=== PATIENT | male | born 1990 | race Hispanic/Latino ===

== ENCOUNTER 2021-08-11 18:18 | Inpatient (IN) | payer BC, OTHER ==
[~2021-08-11] VITALS: Ht 172.7 cm; Wt 136.1 kg
[2021-08-11] MEDS ORDERED: 0.9%NACL 1000ML 1,000 ML IV ONE ×2 (19:00)
[2021-08-11] MEDS ORDERED: ONDANSETRON 4MG INJ IVP ONE (19:00)
[2021-08-11 19:41] LABS: BASOPHILS % (AUTO) 0.6 % (0.0-5.0); EOSINOPHILS % (AUTO) 0.6 % (0.0-8.0); LYMPHOCYTES % (AUTO) 19.4 % (21.0-51.0); MEAN CORPUSCULAR HEMOGLOBIN 27.3 pg (27.0-33.0); MEAN CORPUSCULAR HGB CONC 34.8 g/dL (32.0-36.0); MEAN CORPUSCULAR VOLUME 78.5 fL (79-99); MONOCYTES % (AUTO) 11.5 % (3.0-13.0); NEUTROPHILS % (AUTO) 67.4 % (40.0-77.0); PLATELET COUNT (AUTO) 270 K/uL (130-400); RED BLOOD CELL COUNT(AUTO) 5.35 MIL/uL (4.50-6.20); RED CELL DISTRIBUTION WIDTH 16.2 % (11.0-15.5); WHITE BLOOD COUNT (AUTO) 10.4 K/uL (4.8-10.8)
[2021-08-11 20:09] LABS: ALBUMIN 3.5 g/dL (3.5-5.0); BILIRUBIN,TOTAL 0.7 mg/dL (0.2-1.0); CREATININE 1.3 mg/dL (0.5-1.5); TOTAL PROTEIN, SERUM 8.1 g/dL (6.0-8.3)
[2021-08-11 20:10] LABS: POTASSIUM 2.5 mmol/L (3.5-5.1)
[2021-08-11] MEDS ORDERED: INSULIN REGULAR, HUMAN 3ML 100 UNIT in 0.9%NACL 100ML 99 ML IV STA ×2 (20:26)
[2021-08-11] MEDS ORDERED: POTASSIUM BICARB/CIT AC 25 MEQ TABLET.EFF PO STA (20:26)
[2021-08-11] MEDS ORDERED: INSULIN HUMULIN R 100 UNIT/ML 3ML IV STA (20:26)
[2021-08-11] MEDS ORDERED: INSULIN HUMULIN R 100 UNIT/ML 3ML ONE (20:41)
[2021-08-11 20:42] LABS: ABG BASE EXCESS -10.5 mmol/L (-2.0-3.0); ABG HCO3 12.1 mmol/L (21.0-28.0); ABG OXYGEN SATURATION 98.5 % (95.0-99.0); ABG PCO2 21 mmHg (35-48)
[2021-08-11 20:49] LABS: APPEARANCE,URINE Clear (CLEAR); BILIRUBIN,URINE Negative (NEGATIVE); COLOR,URINE Yellow (YELLOW); GLUCOSE, URINE (UA) >=1000 mg/dL (NEGATIVE); KETONES,URINE >=160 mg/dL (NEGATIVE); LEUKOCYTE ESTERASE ,URINE Small (NEGATIVE); NITRATE,URINE Negative (NEGATIVE); OCCULT BLOOD,URINE Trace (NEGATIVE); PH,URINE 5.5 (5.0-8.0); PROTEIN,URINE Trace mg/dL (NEGATIVE); UROBILINOGEN,URINE 0.2 mg/dL (0.2-1.0)
[2021-08-11 20:55] LABS: BACTERIA,URINE Rare /HPF (None Seen); SQUAMOUS EPITHELIAL CELL,UR Rare /HPF (0-2); YEAST,URINE BUDDING Few /HPF (None Seen)
[2021-08-11] MEDS ORDERED: LIDOCAINE HCL-MPF 1% 2ML VIAL IV STA (21:13)
[2021-08-11] MEDS: POTASSIUM CHLORIDE 20MEQ/100ML 100 ML IV PRN (21:32)
[2021-08-11 21:58] LABS: HEMOGLOBIN A1C 11.5 % (4.0-6.0)
[2021-08-11] MEDS ORDERED: ONDANSETRON 4MG INJ IV PRN (22:00)
[2021-08-11] MEDS ORDERED: ACETAMINOPHEN 325 MG TAB PO PRN ×2 (22:00)
[2021-08-11] MEDS ORDERED: NITROGLYCERIN 0.4 MG SL TAB SL PRN (22:00)
[2021-08-11] MEDS ORDERED: INSULIN REGULAR, HUMAN 3ML 100 UNIT in 0.9%NACL 100ML 99 ML IV PRN ×4 (22:00→22:30)
[2021-08-11] MEDS ORDERED: DEXTROSE 5 %-0.45 % NACL 1,000 ML IV PRN (22:00)
[2021-08-11] MEDS ORDERED: 0.9%NACL 1000ML 1,000 ML IV SCH (22:00)
[2021-08-11] MEDS: 0.9%NACL 1000ML 1,000 ML IV SCH (23:17)
[2021-08-12 00:30] LABS: MAGNESIUM 2.2 mg/dL (1.80-2.40)
[2021-08-12 00:33] LABS: POTASSIUM 2.4 mmol/L (3.5-5.1)
[2021-08-12] MEDS: POTASSIUM CHLORIDE 20MEQ/100ML 100 ML IV PRN (00:48)
[2021-08-12] MEDS ORDERED: KCL 20 MEQ ERTAB PO ONE ×2 (02:00→05:00)
[2021-08-12] MEDS: 0.9%NACL 1000ML 1,000 ML IV SCH (04:08)
[2021-08-12 04:28] LABS: BASOPHILS % (AUTO) 0.3 % (0.0-5.0); EOSINOPHILS % (AUTO) 1.7 % (0.0-8.0); HEMATOCRIT 38.4 % (42-54); LYMPHOCYTES % (AUTO) 28.5 % (21.0-51.0); MEAN CORPUSCULAR HEMOGLOBIN 27.1 pg (27.0-33.0); MEAN CORPUSCULAR HGB CONC 34.1 g/dL (32.0-36.0); MEAN CORPUSCULAR VOLUME 79.5 fL (79-99); MONOCYTES % (AUTO) 13.4 % (3.0-13.0); NEUTROPHILS % (AUTO) 55.7 % (40.0-77.0); PLATELET COUNT (AUTO) 227 K/uL (130-400); RED BLOOD CELL COUNT(AUTO) 4.83 MIL/uL (4.50-6.20); RED CELL DISTRIBUTION WIDTH 16.1 % (11.0-15.5)
[2021-08-12 04:40] LABS: CREATININE 0.9 mg/dL (0.5-1.5)
[2021-08-12 04:40] LABS: ABG HCO3 17.5 mmol/L (21.0-28.0); ABG OXYGEN SATURATION 97.3 % (95.0-99.0); ABG PCO2 33 mmHg (35-48)
[2021-08-12 04:54] LABS: POTASSIUM 2.3 mmol/L (3.5-5.1)
[2021-08-12] MEDS ORDERED: D5W-1/2 NS/20MEQ KCL 1,000 ML IV SCH (05:00)
[2021-08-12 06:55] LABS: ABG BASE EXCESS -6.3 mmol/L (-2.0-3.0); ABG HCO3 17.9 mmol/L (21.0-28.0); ABG OXYGEN SATURATION 97.6 % (95.0-99.0); ABG PCO2 32 mmHg (35-48)
[2021-08-12 08:00] VITALS: BP 164/78
[2021-08-12 08:47] LABS: MAGNESIUM 2.1 mg/dL (1.80-2.40)
[2021-08-12 09:00] VITALS: BP 156/74
[2021-08-12] MEDS ORDERED: FAMOTIDINE 20MG VIAL IV SCH (09:00)
[2021-08-12 09:03] LABS: POTASSIUM 2.6 mmol/L (3.5-5.1)
[2021-08-12] MEDS: POTASSIUM CHLORIDE 10MEQ/100ML 100 ML IV PRN (09:57)
[2021-08-12 10:00] VITALS: BP 156/64
[2021-08-12] MEDS: ENOXAPARIN SODIUM 40 MG/0.4 ML SYRINGE SQ SCH (10:09)
[2021-08-12 11:15] VITALS: BP 166/66
[2021-08-12 12:39] LABS: CREATININE 0.8 mg/dL (0.5-1.5)
[2021-08-12 12:40] LABS: POTASSIUM 2.2 mmol/L (3.5-5.1)
[2021-08-12] MEDS ORDERED: INSULIN GLARGINE 100 UNITS/ML 10 ML VIAL SQ ONE (13:45)
[2021-08-12] MEDS: INSULIN HUMULIN R 100 UNIT/ML 3ML SQ SCH ×3 (17:48→21:00)
[2021-08-12 19:30] VITALS: BP 130/91
[2021-08-13] VITALS (7 sets, daily range): BP systolic 113–150; BP diastolic 75–106
[2021-08-13 04:57] LABS: BASOPHILS % (AUTO) 0.5 % (0.0-5.0); EOSINOPHILS % (AUTO) 2.3 % (0.0-8.0); HEMATOCRIT 37.9 % (42-54); LYMPHOCYTES % (AUTO) 38.3 % (21.0-51.0); MEAN CORPUSCULAR HEMOGLOBIN 27.5 pg (27.0-33.0); MEAN CORPUSCULAR HGB CONC 34.6 g/dL (32.0-36.0); MEAN CORPUSCULAR VOLUME 79.6 fL (79-99); MONOCYTES % (AUTO) 13.1 % (3.0-13.0); NEUTROPHILS % (AUTO) 45.3 % (40.0-77.0); PLATELET COUNT (AUTO) 213 K/uL (130-400); RED BLOOD CELL COUNT(AUTO) 4.76 MIL/uL (4.50-6.20); RED CELL DISTRIBUTION WIDTH 16.2 % (11.0-15.5); WHITE BLOOD COUNT (AUTO) 7.4 K/uL (4.8-10.8)
[2021-08-13 05:23] LABS: ALBUMIN 2.7 g/dL (3.5-5.0); BILIRUBIN,TOTAL 0.6 mg/dL (0.2-1.0); TOTAL PROTEIN, SERUM 6.4 g/dL (6.0-8.3)
[2021-08-13 05:24] LABS: POTASSIUM 2.4 mmol/L (3.5-5.1)
[2021-08-13] MEDS: LIDOCAINE HCL-MPF 1% 2ML VIAL IV PRN (05:32)
[2021-08-13] MEDS: POTASSIUM CHLORIDE 20MEQ/100ML 100 ML IV PRN ×2 (05:33→18:10)
[2021-08-13] MEDS: KCL 20 MEQ ERTAB PO SCH ×2 (06:00→08:23)
[2021-08-13] MEDS: INSULIN HUMULIN R 100 UNIT/ML 3ML SQ SCH ×5 (06:35→20:11)
[2021-08-13] MEDS ORDERED: INSULIN GLARGINE 100 UNITS/ML 10 ML VIAL SQ SCH (08:00)
[2021-08-13] MEDS: ENOXAPARIN SODIUM 40 MG/0.4 ML SYRINGE SQ SCH (08:22)
[2021-08-13] MEDS ORDERED: KCL 20 MEQ ERTAB PO SCH ×2 (09:43→13:00)
[2021-08-13] MEDS ORDERED: INSULIN HUMULIN R 100 UNIT/ML 3ML SQ SCH ×2 (11:30→17:00)
[2021-08-13] MEDS: LACTATED RINGERS 1000ML 1,000 ML IV SCH (12:17)
[2021-08-13 15:21] LABS: POTASSIUM 2.6 mmol/L (3.5-5.1)
[2021-08-13] MEDS: KCL 20 MEQ ERTAB PO PRN ×3 (15:42→16:20)
[2021-08-13 19:10] LABS: ALBUMIN 2.8 g/dL (3.5-5.0); BILIRUBIN,TOTAL 0.4 mg/dL (0.2-1.0); CREATININE 0.9 mg/dL (0.5-1.5); POTASSIUM 3.1 mmol/L (3.5-5.1); TOTAL PROTEIN, SERUM 6.7 g/dL (6.0-8.3)
[2021-08-14] MEDS: LACTATED RINGERS 1000ML 1,000 ML IV SCH ×3 (02:15→11:40)
[2021-08-14 03:40] LABS: HEMATOCRIT 36.9 % (42-54); MEAN CORPUSCULAR HEMOGLOBIN 28.3 pg (27.0-33.0); MEAN CORPUSCULAR HGB CONC 35.2 g/dL (32.0-36.0); MEAN CORPUSCULAR VOLUME 80.4 fL (79-99); RED BLOOD CELL COUNT(AUTO) 4.59 MIL/uL (4.50-6.20); RED CELL DISTRIBUTION WIDTH 16.2 % (11.0-15.5)
[2021-08-14 03:48] VITALS: BP 126/75
[2021-08-14 03:55] LABS: CREATININE 0.8 mg/dL (0.5-1.5)
[2021-08-14 03:58] LABS: POTASSIUM 2.5 mmol/L (3.5-5.1)
[2021-08-14] MEDS: POTASSIUM CHLORIDE 20MEQ/100ML 100 ML IV PRN (04:08)
[2021-08-14] MEDS: KCL 20 MEQ ERTAB PO PRN (04:08)
[2021-08-14] MEDS: LIDOCAINE HCL-MPF 1% 2ML VIAL IV PRN (04:08)
[2021-08-14] MEDS: INSULIN HUMULIN R 100 UNIT/ML 3ML SQ SCH ×7 (06:39→21:50)
[2021-08-14] MEDS ORDERED: KCL 20 MEQ ERTAB PO SCH (07:40)
[2021-08-14 08:00] VITALS: BP 104/58
[2021-08-14] MEDS ORDERED: INSULIN GLARGINE 100 UNITS/ML 10 ML VIAL SQ SCH (08:00)
[2021-08-14] MEDS: ENOXAPARIN SODIUM 40 MG/0.4 ML SYRINGE SQ SCH (09:29)
[2021-08-14] MEDS ORDERED: GLIM4TAB36 PO (10:15)
[2021-08-14] MEDS ORDERED: METF-446 PO (10:15)
[2021-08-14] MEDS: KCL 20 MEQ ERTAB PO SCH ×2 (11:58→13:19)
[2021-08-14 12:00] VITALS: BP 118/43
[2021-08-14] MEDS ORDERED: KCL 20 MEQ ERTAB PO ONE ×2 (14:30→22:00)
[2021-08-14 16:00] VITALS: BP 112/57
[2021-08-14 20:00] VITALS: BP 126/59
[2021-08-14] MEDS ORDERED: MAGNESIUM 2GM PREMIX 50ML 50 ML IV PRN (21:00)
[2021-08-14 23:58] VITALS: BP 122/60
[2021-08-15 05:19] LABS: CREATININE 0.6 mg/dL (0.5-1.5); MAGNESIUM 1.9 mg/dL (1.80-2.40)
[2021-08-15 05:35] LABS: POTASSIUM 2.6 mmol/L (3.5-5.1)
[2021-08-15] MEDS: POTASSIUM CHLORIDE 10MEQ/100ML 100 ML IV PRN (05:52)
[2021-08-15] MEDS: LIDOCAINE HCL-MPF 1% 2ML VIAL IV PRN (05:52)
[2021-08-15] MEDS ORDERED: KCL 20 MEQ ERTAB PO ONE ×2 (06:00→15:45)
[2021-08-15] MEDS: INSULIN HUMULIN R 100 UNIT/ML 3ML SQ SCH ×6 (06:42→16:59)
[2021-08-15] MEDS ORDERED: KCL 20 MEQ ERTAB PO SCH ×2 (07:30→11:30)
[2021-08-15] MEDS ORDERED: INSULIN GLARGINE 100 UNITS/ML 10 ML VIAL SQ SCH (08:00)
[2021-08-15 09:44] VITALS: BP 119/61
[2021-08-15] MEDS: ENOXAPARIN SODIUM 40 MG/0.4 ML SYRINGE SQ SCH (09:44)
[2021-08-15 10:45] VITALS: BP 129/79
[2021-08-15] MEDS ORDERED: HYDRALAZINE 25MG TABLET PO SCH (14:00)
== END 2021-08-15 17:00 | disposition home or self-care (01) | DRG 638 ==
LOC: EDH 18:18 → EDHIP 18:19 → 2DH 08-12 07:30 → 3BH 08-12 22:39
PROVIDERS: ADMIT Internal Medicine; ATTEND Internal Medicine
DX: E11.10 Type 2 diabetes mellitus with ketoacidosis without coma (principal); Z68.42 Body mass index [BMI] 45.0-49.9, adult; E86.0 Dehydration; E87.6 Hypokalemia; E66.01 Morbid (severe) obesity due to excess calories; Z20.822 Contact with and (suspected) exposure to COVID-19; K21.9 Gastro-esophageal reflux disease without esophagitis; G47.33 Obstructive sleep apnea (adult) (pediatric); Z79.4 Long term (current) use of insulin; Z83.3 Family history of diabetes mellitus; Z82.49 Family history of ischemic heart disease and other diseases of the circulatory system
CPT/HCPCS: 36415; 36600; 80048; 80053; 80061; 81001; 82010; 82150; 82435; 82550; 82803; 82947; 82948; 83036; 83605; 83690; 83735; 83930; 84100; 84132; 84295; 85018; 85025; 85027; 86701; 87390; 87635; 93005; 99291; G0378; J1650; J1815; J2405; J3480; J3490; J7030; J7042; J7120